=== PATIENT | female | born 1970 | race Caucasian/White ===

== ENCOUNTER 2017-04-13 00:11 | Emergency (ER) | payer BC ==
[~2017-04-13] VITALS: Ht 157.5 cm; Wt 65.9 kg
[2017-04-13 00:27] VITALS: BP 107/68; PULSE 83; RESP 14; TEMP 98.4; O2SAT 97
[2017-04-13] MEDS ORDERED: DEPO150I IM (00:36)
[2017-04-13] MEDS ORDERED: CLINDAMYCIN INJ 600 MG in SODIUM CHLORIDE 0.9% INJ 100 ML IV ONE (02:45)
[2017-04-13] MEDS ORDERED: KETOROLAC TROMETHAMINE 30 MG/ML (IVP) VIAL IV PUSH ONE (02:45)
[2017-04-13 02:48] LABS: AUTOMATED NEUTROPHIL # 7.7 TH/MM3 (1.8-7.7); BASOPHIL # 0.1 TH/MM3 (0-0.2); BASOPHIL % 0.7 % (0.0-2.0); EOSINOPHIL # 0.1 TH/MM3 (0-0.4); EOSINOPHIL % 0.7 % (0.0-4.0); HEMATOCRIT 40.7 % (35.0-46.0); HEMO FLAGS DIFF FINAL; LYMPH % 19.2 % (9.0-44.0); LYMPHOCYTE # 2.1 TH/MM3 (1.0-4.8); MEAN CORPUSCULAR HEMOGLOBIN 29.6 PG (27.0-34.0); MEAN CORPUSCULAR HGB CONC 33.3 % (32.0-36.0); NEUT % 72.4 % (16.0-70.0); PLATELET COUNT 215 TH/MM3 (150-450); RED BLOOD COUNT 4.57 MIL/MM3 (4.00-5.30); RED CELL DISTRIBUTION WIDTH 12.7 % (11.6-17.2); WHITE BLOOD COUNT 10.8 TH/MM3 (4.0-11.0)
[2017-04-13 02:54] LABS: CHLORIDE 103 MEQ/L (98-107); POTASSIUM 3.9 MEQ/L (3.5-5.1); SODIUM (NA) 140 MEQ/L (136-145)
--- NOTE | 2017-04-13 02:57 | RADRPT ---
EXAM DATE/TIME: 04/13/2017 02:44 [place] COMPARISON: No previous studies available for comparison. INDICATIONS : Right foot pain. MEDICAL HISTORY : None. SURGICAL HISTORY : None. ENCOUNTER: Initial ACUITY: 3 days PAIN SCORE: 4/10 LOCATION: Right foot. FINDINGS: Three view examination of the right foot demonstrates no soft tissue swelling, dislocation, or fractu re. The tarsal bones appear intact. The interphalangeal and metatarsophalangeal joints are intact. The calcaneus is intact. Bony mineralization is normal. CONCLUSION: Unremarkable examination. Albin Elliott MD on April 13, 2017 at 2:55 Board Certified Radiologist. This report was verified electronically.
[2017-04-13 02:58] LABS: ANION GAP 11 MEQ/L (5-15); BICARBONATE 26.4 MEQ/L (21.0-32.0); BLOOD UREA NITROGEN 18 MG/DL (7-18)
[2017-04-13 03:01] LABS: ALT (GPT) 19 U/L (10-53); AST (GOT) 18 U/L (15-37); GLOMERULAR FILTRATION RATE 76 ML/MIN (>89)
[2017-04-13 03:02] LABS: TOTAL BILIRUBIN ADULT 0.5 MG/DL (0.2-1.0)
[2017-04-13 03:04] LABS: ALKALINE PHOSPHATASE 50 U/L (45-117)
[2017-04-13] MEDS ORDERED: DOXY100C PO (03:07)
[2017-04-13] MEDS ORDERED: LEVA750T9 PO (03:07)
[2017-04-13] MEDS ORDERED: CLIN1CAP6 PO (03:07)
--- NOTE | 2017-04-13 03:08 | PD ---
HPI Chief Complaint: Musculoskeletal Complaint Time Seen by Provider: 01:41 Travel History International Travel<30 days: No Contact w/Intl Traveler<30days: No Traveled to known affect area: No History of Present Illness HPI Is a 46-year-old woman presents emergent from complaining of right foot pain. She reports that 3 days ago associated small amount of discomfort. It was not bad. Over the course of states got significantly worse. She is pain and swelling on the medial aspect of the foot posteriorly. She is a lot of tenderness and fullness. She'll a lot of pain with trying to walk. No fevers or chills. She has eczema on the bottom of her foot and has a lot of trouble with scaling but is not had skin infections are similar problems she was in the ocean 2 days ago, after this initially started for became significantly worse. History Past Medical History Medical History: Denies Significant Hx Tetanus Vaccination: Unknown Influenza Vaccination: No : 1 Para: 1 Social History Alcohol Use: Yes ("MAYBE ONCE OR TWICE A YEAR") Tobacco Use: No (QUIT AGE 31) Allergies-Medications (Allergen,Severity, Reaction): Coded Allergies: Fire Ant (Verified Allergy, Severe, Anaphylaxis, 04/13/17) Penicillin (Verified Allergy, Severe, Hives, 04/13/17) Reported Meds & Prescriptions Reported Meds & Active Scripts Active Reported Depo-Provera Inj (Medroxyprogesterone Inj) 150 Mg/Ml Inj 150 Mg IM Q90D Review of Systems Except as stated in HPI: all other systems reviewed are Neg Physical Exam Narrative GENERAL: Well-appearing 46 year-old woman, no acute distress. SKIN: Warm and dry. CARDIOVASCULAR: Warm and well perfused. RESPIRATORY: Normal rate and effort. MUSCULOSKELETAL: Scalp pain and tenderness and redness on the medial aspect of the foot. There is fullness and tenderness with erythema and warmth. This stretches onto the medial aspect of the foot, and wraps around to the bottom of the foot. NEUROLOGICAL: Awake and alert. No gross deficits. Data Data Last Documented VS Vital Signs Date Time Temp Pulse Resp B/P Pulse Ox O2 Delivery O2 Flow Rate FiO2 04/13/17 00:27 98.4 83 14 107/68 97 Orders Foot, Complete ([id number]) (04/13/17 ) Complete Blood Count With Diff (04/13/17 02:34) Comprehensive Metabolic Panel (04/13/17 02:34) Iv Access Insert/Monitor (04/13/17 02:34) Ketorolac Inj (Toradol Inj) (04/13/17 02:45) Clindamycin Inj (Cleocin Inj) (04/13/17 02:45) Labs Laboratory Tests Test 04/13/17 02:40 White Blood Count 10.8 TH/MM3 Red Blood Count 4.57 MIL/MM3 Hemoglobin 13.5 GM/DL Hematocrit 40.7 % Mean Corpuscular Volume 89.0 FL Mean Corpuscular Hemoglobin 29.6 PG Mean Corpuscular Hemoglobin 33.3 % Concent Red Cell Distribution Width 12.7 % Platelet Count 215 TH/MM3 Mean Platelet Volume 8.5 FL Neutrophils (%) (Auto) 72.4 % Lymphocytes (%) (Auto) 19.2 % Monocytes (%) (Auto) 7.0 % Eosinophils (%) (Auto) 0.7 % Basophils (%) (Auto) 0.7 % Neutrophils # (Auto) 7.7 TH/MM3 Lymphocytes # (Auto) 2.1 TH/MM3 Monocytes # (Auto) 0.8 TH/MM3 Eosinophils # (Auto) 0.1 TH/MM3 Basophils # (Auto) 0.1 TH/MM3 CBC Comment DIFF FINAL Differential Comment Sodium Level 140 MEQ/L Potassium Level 3.9 MEQ/L Chloride Level 103 MEQ/L Calcium Level 9.1 MG/DL [facility] Medical Decision Making Medical Screen Exam Complete: Yes Emergency Medical Condition: Yes Interpretation(s) LABS: CBC unremarkable. CMP unremarkable. Foot x-ray negative. Differential Diagnosis Infection, cellulitis, other Narrative Course Medical decision making Is a 46 over presents emergency Department with cellulitis of the bottom of her foot. We'll check an x-ray pressures have some kind of occult stress fracture but the gets unlikely. Questions really will not cover her for water exposure. She was in the ocean noticing the started afterwards however he does significantly worse since then. This point I think the risk of not treating her for possible water exposure cellulitis outweighs the risk of treating. We' ll treat with clindamycin, Levaquin, back seat. Diagnosis Primary Impression: Cellulitis Additional Instructions: Take antibiotics as prescribed for 10 days. Keep leg elevated for the next 48 hours. Take probiotics are take yogurt all taking antibiotics to reduce risk of GI upset. Return to the emergency department for any worsening pain redness swelling fevers or any other new or worsening symptoms. Follow-up with her primary doctor in the next 2-3 days. Med/Other Pt SpecificInfo: Prescription(s) given Scripts Doxycycline Hyclate 100 Mg [id number] Mg PO BID 10 Days Ref 0 Prov:Jimbo Mckeon MD 04/13/17 Levofloxacin (Levaquin)750 Mg Tablet1 Tab PO DAILY 10 Days Prov:Jimbo Mckeon MD 04/13/17 Clindamycin 300 Mg [id number] Mg PO Q6H 10 Days Prov:Jimbo Mckeon MD 04/13/17 Disposition: 01 DISCHARGE HOME Condition: Stable Jimbo Mckeon MD Apr 13, 2017 03:08
[2017-04-13] MEDS ORDERED: DOXYCYCLINE HYCLATE 100 MG CAP PO ONE (03:15)
[2017-04-13] MEDS ORDERED: LEVOFLOXACIN 750 MG TAB PO ONE (03:15)
[2017-04-13 03:33] VITALS: BP 114/68
== END 2017-04-13 03:33 | disposition home or self-care (01) ==
LOC: PHED 00:11
DX: L03.115 Cellulitis of right lower limb (principal)
CPT/HCPCS: 73630; 80053; 85025; 96365; 96375; 99284; J1885